=== PATIENT | female | born 1950 | race Caucasian/White ===

== ENCOUNTER 2025-09-27 08:51 | Inpatient (IN) | payer MEDICARE, OTHER, SELFPAY ==
[2025-09-25 14:15] VITALS: BP 130/90
[2025-09-25 14:36] LABS: Hematocrit 46.5 % (37.0-47.0); Hemoglobin 15.8 g/dL (12.0-16.0); Mean Corp Hgb Conc. 34.0 g/dL (33.0-37.0); Mean Corpuscular Volume 83.5 fL (81.0-99.0); Platelet Count 290 10^3/uL (130-400); Red Cell Dist. Width 13.7 % (11.5-14.5)
[2025-09-25 14:45] LABS: ALT (SGPT) 27 U/L (0-35); AST (SGOT) 35 U/L (14-36); Albumin 4.6 g/dl (3.5-5.0); Alkaline Phosphatase 91 U/L (38-126); Blood Urea Nitrogen 15 mg/dl (7-17); Calcium 10.4 mg/dl (8.4-10.2); Carbon Dioxide 25 mmol/L (22-30); Chloride 102 mmol/L (98-107); Glucose 168 mg/dl (70-99); Lipase 23 U/L (23-300); Potassium 4.6 mmol/L (3.5-5.1); Sodium 135 mmol/L (135-145); Total Protein 7.9 g/dl (6.3-8.2); eGFR > 60.00
[2025-09-25 14:49] LABS: INR 1.18; PT 15.1 Sec (11.4-14.6)
[2025-09-25 14:56] LABS: Troponin I 0.020 ng/ml
[2025-09-25 15:16] LABS: Nucleated Red Blood Cells % 0 %
--- NOTE | 2025-09-25 16:55 | ED.GENMED ---
History of Present Illness
<Keith Lion PA-C - Last Filed: 09/25/25 19:13>
General
Chief Complaint: Abdominal Pain
Source: patient and family
Time Seen by Provider: 09/25/25 16:47
History of Present Illness
History of Present Illness:
74-year-old female presenting to the emergency department for evaluation after waking up in the middle the night with right upper abdominal/chest discomfort accompanied with nausea but no vomiting, now pain is exclusively within the right lower
quadrant radiating towards her right back and a sensation of bloating, noting pain with any movements. Has not eaten or drank anything today due to lack of appetite. Denies any fevers, chills or rigors, shortness of breath, palpitations or any
other concerns. Did not take anything for symptoms prior to arrival.
Past History
<Keith Lion PA-C - Last Filed: 09/25/25 19:13>
Past History
ED Past Medical History: None; Negative Arrthythmia
ED Past Surgical History: Other
Social History
Tobacco: Non-smoker
Alcohol: None
Drug: None
Personal:
Living: with family
Employment: Employed
Family History
Family History: Negative Sudden or Adopted
Review of Systems
<Keith Lion PA-C - Last Filed: 09/25/25 19:13>
Review of Systems
All Other Systems: ROS reviewed and negative except as documented in HPI and ROS
Phy Exam
<Keith Lion PA-C - Last Filed: 09/25/25 19:13>
Physical Exam
Physical Exam:
GENERAL: Alert , appears in significant pain
EYE: clear conjunctiva b/l
HEAD: NCAT
ENT: o/p clr, mmm.
CARDIAC: Regular rate and rhythm .
LUNGS: Clear breath sounds bilaterally, no acute respiratory distress, no wheezes/rales/rhonchi
ABDOMEN: Soft, right upper quadrant tenderness, no r/g, no cvat, positive La sign
NEUROLOGICAL: Alert and oriented
SKIN: Warm and dry, skin intact.
MUSCULOSKELETAL: No edema, well perfused.
PSYCH: Normal and appropriate interaction.
Scores
<Keith Lion PA-C - Last Filed: 09/25/25 19:13>
Heart Failure Risk
Heart Failure Risk Score: Not Applicable
Heart Score for Chest Pain Patients
STEMI patient?: Not applicable
Withdrawal Assessment of Alcohol
Withdrawal Assessment Completed?: Not applicable
Course
<Keith Lion PA-C - Last Filed: 09/25/25 19:13>
Orders/Labs/Results
Orders:
Orders
09/25/25 14:15
EKG [Electrocardiogram (*1)] Urgent
Reason for Study: Abdominal Pain
EKG- Treatment ONCE
US Abdomen Complete/Upper Urgent
Comment:
Reason For Exam: RUQ pain
09/25/25 14:21
Complete Blood Count/With Diff Urgent
Comprehensive Metabolic Panel Urgent
Lipase Urgent
Prothrombin Time Urgent
Troponin I Urgent
09/25/25 16:47
Piperacillin/Tazo 3.375 Gram [Zosyn] 3.375 gram in 50 ml IV NOW
09/25/25 16:54
0.9% Sodium Chloride 1000 ml [Nss] 2,000 ml IV BOLUS
HYDROmorphone [Dilaudid] 0.5 mg IV NOW STA
09/25/25 16:57
Lactic Acid Q4H
Comment: CANCEL 2nd LACTIC ACID IF 1st LACTIC ACID IS LESS THAN 2
Blood Culture Q30M
CHAD Source: Blood/Venous
Specimen Description:
Blood Culture Q30M
CHAD Source: Blood/Venous
Specimen Description:
09/25/25 17:19
Ondansetron Injectable [Zofran] 4 mg IV NOW STA
09/25/25 19:15
HYDROmorphone [Dilaudid] 0.5 mg IV NOW STA
09/25/25 21:00
Lactic Acid Q4H
Comment: CANCEL 2nd LACTIC ACID IF 1st LACTIC ACID IS LESS THAN 2
Abnormal Lab Results
09/25/25
14:21
WBC 29.3 H 10^3/uL
(4.8-10.8)
RBC 5.57 H 10^6/uL
(4.20-5.40)
Abs Immat Gran (auto) 0.2 H 10^3/uL
(0-0.05)
Absolute Neuts (auto) 25.8 H 10^3/uL
(1.4-6.5)
Absolute Lymphs (auto) 1.1 L 10^3/uL
(1.2-3.4)
Absolute Monos (auto) 2.1 H 10^3/uL
(0.1-0.6)
Immature Gran % 0.8 H %
(0-0.5)
Neutrophils % 88.1 H %
(42.2-75.2)
Lymphocytes % 3.7 L %
(20.5-51.1)
PT 15.1 H Sec
(11.4-14.6)
Glucose 168 H mg/dl
(70-99)
Calcium 10.4 H mg/dl
(8.4-10.2)
Total Bilirubin 2.5 H mg/dl
(0.2-1.3)
09/25/25 14:21
09/25/25 14:21
Vital Signs
Initial and Last Documented VS:
Initial Vital Signs
Temp Pulse Resp BP Pulse Ox
97.7 F 96 17 130/90 97
12/16/25 14:15 09/25/25 14:15 09/25/25 14:15 09/25/25 14:15 09/25/25 14:15
Last Documented Vital Signs
Temp Pulse Resp BP Pulse Ox
97.7 F 90 18 128/74 98
09/25/25 14:15 09/25/25 17:22 09/25/25 17:22 09/25/25 17:22 09/25/25 17:22
<Ganesh Onofre, DO - Last Filed: 09/25/25 19:52>
Orders/Labs/Results
Orders:
Orders
09/25/25 14:15
EKG [Electrocardiogram (*1)] Urgent
Reason for Study: Abdominal Pain
EKG- Treatment ONCE
US Abdomen Complete/Upper Urgent
Comment:
Reason For Exam: RUQ pain
09/25/25 14:21
Complete Blood Count/With Diff Urgent
Comprehensive Metabolic Panel Urgent
Lipase Urgent
Prothrombin Time Urgent
Troponin I Urgent
09/25/25 16:47
Piperacillin/Tazo 3.375 Gram [Zosyn] 3.375 gram in 50 ml IV NOW
09/25/25 16:54
0.9% Sodium Chloride 1000 ml [Nss] 2,000 ml IV BOLUS
HYDROmorphone [Dilaudid] 0.5 mg IV NOW STA
09/25/25 16:57
Lactic Acid Q4H
Comment: CANCEL 2nd LACTIC ACID IF 1st LACTIC ACID IS LESS THAN 2
Blood Culture Q30M
CHAD Source: Blood/Venous
Specimen Description:
Blood Culture Q30M
CHAD Source: Blood/Venous
Specimen Description:
09/25/25 17:19
Ondansetron Injectable [Zofran] 4 mg IV NOW STA
09/25/25 19:15
HYDROmorphone [Dilaudid] 0.5 mg IV NOW STA
09/25/25 21:00
Lactic Acid Q4H
Comment: CANCEL 2nd LACTIC ACID IF 1st LACTIC ACID IS LESS THAN 2
Abnormal Lab Results
09/25/25
14:21
WBC 29.3 H 10^3/uL
(4.8-10.8)
RBC 5.57 H 10^6/uL
(4.20-5.40)
Abs Immat Gran (auto) 0.2 H 10^3/uL
(0-0.05)
Absolute Neuts (auto) 25.8 H 10^3/uL
(1.4-6.5)
Absolute Lymphs (auto) 1.1 L 10^3/uL
(1.2-3.4)
Absolute Monos (auto) 2.1 H 10^3/uL
(0.1-0.6)
Immature Gran % 0.8 H %
(0-0.5)
Neutrophils % 88.1 H %
(42.2-75.2)
Lymphocytes % 3.7 L %
(20.5-51.1)
PT 15.1 H Sec
(11.4-14.6)
Glucose 168 H mg/dl
(70-99)
Calcium 10.4 H mg/dl
(8.4-10.2)
Total Bilirubin 2.5 H mg/dl
(0.2-1.3)
09/25/25 14:21
09/25/25 14:21
Vital Signs
Initial and Last Documented VS:
Initial Vital Signs
Temp Pulse Resp BP Pulse Ox
97.7 F 96 17 130/90 97
09/25/25 14:15 09/25/25 14:15 09/25/25 14:15 09/25/25 14:15 09/25/25 14:15
Last Documented Vital Signs
Temp Pulse Resp BP Pulse Ox
97.7 F 90 18 128/74 98
09/25/25 14:15 09/25/25 17:22 09/25/25 17:22 09/25/25 17:22 09/25/25 17:22
<Keith Lion PA-C - Last Filed: 09/25/25 19:13>
MDM/Problems Addressed
Differential Diagnosis Includes:
Cholecystitis/Cholelithiasis
Cholangitis
Pancreatitis
Atypical ACS
GERD
Gastritis
PUD
PE
Dissection
MDM/Problems Addressed:
74-year-old female presenting to the ER for evaluation of right upper quadrant abdominal pain, nausea and lack of p.o. intake. Symptoms persistent throughout the day today. Labs have been initiated on arrival which show a leukocytosis of 29,000.
T. bili elevated at 2.5. Given the location of pain and patient's history I do have concern for cholecystitis. Ultrasound results pending.
<Keith Lion PA-C - Last Filed: 09/25/25 19:13>
*Radiology
Radiology exam reviewed: radiology read reviewed
*Pulse Oximetry
SaO2: 97
Oxygen Mode of Delivery: Room air
Patient hypoxic: no
*Critical Care Note
Total Time (30-74mins, 75-104mins- exclusive of procedures): Not Applicable
<Keith Lion PA-C - Last Filed: 09/25/25 19:13>
Patient Management
Discussion with other providers: Dies[employer] and Radiologist
Escalation/DeEscalation of care consider admission/obs:
Noted by radiologist that patient has acute calculous cholecystitis. Will notify general surgery. Zosyn ordered. Due to leukocytosis I did add on a lactic acid, blood cultures. Dilaudid and fluids ordered for symptomatic relief.
Surgical team to admit. House provider to place orders under the surgical service.
ED Attending Note
<Keith Lion PA-C - Last Filed: 09/25/25 19:13>
-
Portions of this chart may have been created with voice recognition software.� Occasional wrong word or��sound alike� substitutions may have occurred due to the inherent limitations of voice recognition software.
<Ganesh Onofre DO - Last Filed: 09/25/25 19:52>
ED Attending Note
Patient seen and examined by attending physician: Yes
ED Attending Note:
I have reviewed and agree with history treatment plan by Aquiles Lion PA-C. My exam revealed 74-year-old female with right upper quadrant tenderness. Leukocytosis, likely secondary to acute cholecystitis seen on ultrasound. IV Zosyn given.
Admit to General surgery.
Discharge Plan
Departure
Patient Disposition: Admit
Date of Disposition: 09/25/25
Time of Disposition: 17:15
Presentation/result/management discussed w/ accepting MD/DO: Dr. Mayen
Discharge Problem:
Acute calculous cholecystitis
Prescriptions:
No Action
oxycodone-acetaminophen 5 MG/325 MG tablet
1 tab PO .Q4-6HPRN PRN (Reason: pain) Qty: 30 0RF
ibuprofen 600 MG tablet
600 mg PO Q6H Qty: 30 0RF
naproxen 500 MG tablet
500 mg PO BID Qty: 60 0RF
cyclobenzaprine [Flexeril] 5 MG tablet
5 mg PO TID PRN (Reason: spasm) Qty: 30 0RF
Interventions
Interventions:
*General Assessment Last Done: 09/25/25 14:17
*Neglect/Abuse Screening Last Done: 09/25/25 14:17
*ED COVID-19 Vaccine History Last Done: 09/25/25 14:17
*ED Influenza Vaccine History Last Done: 09/25/25 14:17
*Risk Screen - Suicide (C-SSRS) Last Done: 09/25/25 14:17
US-Kusjvb-Whbanraqla Assessment Last Done: 09/25/25 16:22
Discharge Date and Time
Print Language: MOSOTHO
[2025-09-25] MEDS: DILAUDID 0.5 MG IV ×3 (17:03→23:25)
[2025-09-25] MEDS: ZOSYN 50 IV ×2 (17:03→23:00)
[2025-09-25] MEDS: NSS 2000 IV (17:03)
[2025-09-25 17:22] VITALS: BP 128/74
--- NOTE | 2025-09-25 20:34 | HPS.HSE ---
Addendum entered and electronically signed by Gurmeet Mayen MD 09/26/25 10:14:
I saw and examined the patient.
The Private Inquiry Agent's note was reviewed and I agree with the note.
Comment: 3 days of abd pain, progressive, severe, epigastric, a/w n/v, no changes to stool/urine, ttp on exam to ruq/epigastrium, AFVSS, leukocytosis noted and bili elevated, US with stones, GBWT, PCF, ducts WNL. OCTOR for rCCY with cholang. IV abx
Original Note:
Family Physician
-
Family Physician: * NONE
Chief Complaint
-
Abdominal pain
History of Present Illness
a 74 years old female with no PMH, present to ER with a complain of abdominal, back, and epigastric area pain, started around 3am Wednesday. Pain associated with chills, nausea and multiple episodes of vomiting almost 15 times can not keep anything
down. Also she complained of constipation since Wed or Wednesday. Patient denies SOB, palpation, fever, urinary symptoms or any other symptoms. Currently pain is localized to RUQ.
Patient is not receiving any prescribed meds at home. Past surgeries (cataract surgeries 12/1989 & Aug 1991)
Medical History
Past Medical History
Past Medical History: Reports None
Past Surgical History: Reports Other (cataract surgeries 12/1989& Aug 1991)
Social History
Tobacco: Non-smoker
Alcohol: Occasional
Drug: None
Personal: Other
Living: With Family (With the daughter )
Employment: Retired
Family History
Family History: Not pertinent
Allergies / Home Medications
Allergies reflects when Allergies were last updated in [employer].
Home Medications with original date entered in [employer]
Allergy/Medication List:
Home Medications Table - record
�Medication �Instructions �Recorded �Confirmed
No Meds [No Current Medications] 09/25/25 09/25/25
Patient Allergies
Allergy/AdvReac Type Severity Reaction Status Date / Time
No Known Allergies Allergy Unverified 09/25/25 14:16
Review of Systems
-
History Source: Patient
Constitutional: Reports Chills
Respiratory: Reports No Symptoms
Abdomen/GI: Reports Abdominal Pain, Nausea, Vomiting and Constipated
: Reports No Symptoms
Musculoskeletal: Reports No Symptoms
Physical Exam
Vital Signs
Vital Signs
Temp Pulse Resp BP Pulse Ox
97.7 F 90 18 128/74 98
09/25/25 14:15 09/25/25 17:22 09/25/25 17:22 09/25/25 17:22 09/25/25 17:22
Physical Exam
General: No Apparent Distress
Respiratory: Clear
Cardiac: Regular Rhythm
GI: Soft, Normal Bowel Sounds and Tender (RUQ)
Musculoskeletal: No Edema
Neuro: Awake and AO x 3
Laboratory Results
-
09/25/25 14:21
09/25/25 14:21
Laboratory Results
PT 15.1 Sec (11.4-14.6) H 09/25/25 14:21
INR 1.18 09/25/25 14:21
Lactic Acid 2.0 mmol/L (0.7-2.0) 09/25/25 16:57
Total Bilirubin 2.5 mg/dl (0.2-1.3) H 09/25/25 14:21
AST 35 U/L (14-36) 09/25/25 14:21
ALT 27 U/L (0-35) 09/25/25 14:21
Alkaline Phosphatase 91 U/L (38-126) 09/25/25 14:21
Troponin I 0.020 ng/ml 09/25/25 14:21
Lipase 23 U/L (23-300) 09/25/25 14:21
Data Reviewed
-
Lab Data: Discussed with Patient
Impression/Plan
-
Abd U/S shows suggestive of acute calculus cholecystitis in the appropriate clinical context.
WBC 29.3
IMPRESSION:
acute calculus cholecystitis
PLAN:
Admit/observation/ med-surg (dr. Mayen/ surgical services)
NPO
IVF
abx Zosyn
analgesics as needed
antiemetics as needed
Laxatives PRN
DVT prophylaxis Lovenox
Code status Full Code
[2025-09-25] MEDS: NSS 1000 IV (22:15)
--- NOTE | 2025-09-25 22:30 | PTCARENOTE ---
74-year-old female arrived from ED on 2S at 22:05. Pt's US Abd - Sonographic findings suggestive of acute calculus cholecystitis
Pt has no significant PMH and does not take any regular medications. Pt AOx3, daughter at bedside, bed in a low position, call light in reach, care ongoing.
[2025-09-25 23:00] VITALS: BP 133/80
[2025-09-25] MEDS: SENOKOT-S 1 TABLET PO (23:03)
[2025-09-25] MEDS: ZOFRAN 4 MG IV (23:33)
[2025-09-26] VITALS (11 sets, daily range): BP systolic 83–124; BP diastolic 51–68
[2025-09-26] MEDS: ZOSYN 50 IV ×4 (06:00→23:16)
--- NOTE | 2025-09-26 08:58 | CM ---
Chart reviewed and patient was admitted for acute cholecystitis, under observation, [facility] letter provided to patient however patient did not sign, patient lives with daughter in a 2 story home, patient is independent with adl's and ambulation, no
dme, patient drives, home with daughter when stable.
PCP: Patient does not have a PCP offered information [facility] however patient declined.
Pharmacy: [facility]
[2025-09-26] MEDS: DILAUDID 0.5 MG IV (09:38)
[2025-09-26] MEDS: NSS 1000 IV ×2 (11:17→23:20)
--- NOTE | 2025-09-26 15:31 | OR.RPT ---
Operative Report
Operative Report
Primary Surgeon: Tiarra
Assisting: Samm MARY, Giovana TELLEZ
Pre-op Diagnosis: Acute calculous cholecystitis
Post-op Diagnosis: Same
Procedure Performed: Robot assisted laparoscopic cholecystectomy with intraoperative near infra-red imaging of major extrahepatic bile ducts and intraoperative cholangiogram
Anesthesia Type: GETA
Specimen / Cultures: Gallbladder
Estimated Blood Loss:15cc
Complications: None immediate
Operative Findings: Severely inflamed distended edematous gallbladder with patchy gangrene; cholangiogram with good flow into duodenum, good opacification of biliary tree without filling defects
DOS: 09/26/25
Indications: This 74F developed right upper quadrant/epigastric pain and on workup was found to have cholelithiasis, with elevated liver enzymes and normal sized ducts. Laparoscopic cholecystectomy with robotic assist and with cholangiogram was
planned.
Description of procedure: The patient was placed on the operating table in the supine position. General anesthesia was induced. A time-out was completed verifying correct patient, procedure, site, positioning, and special equipment prior to
beginning this procedure. An orogastric tube was placed. The abdomen was prepped and draped in the usual sterile fashion. A stab incision was made in left upper quadrant and the Veress needle was inserted. Proper position was confirmed by aspiration
and saline meniscus test. The abdomen was insufflated with carbon dioxide to a pressure of 12 mmHg. The patient tolerated insufflation well.
An 8mm optical trocar was then inserted in the left upper quadrant. The laparoscope was inserted and the abdomen inspected. Additional 8mm trocars were then inserted in the following locations: above the umbilicus, right mid clavicular line at the
level of the umbilicus and 6cm lateral to this on the right. The abdomen was inspected and no abnormalities were found. The table was placed in the reverse Trendelenburg position with the right side up. Dense inflamed omental adhesions to the
gallbladder fundus were taken down carefully. The dome of the gallbladder was grasped with an atraumatic grasper and retracted over the dome of the liver. The infundibulum was grasped with an atraumatic grasper and retracted toward the right lower
quadrant. The infundibulum showed signs of gangrene and early necrosis. This maneuver exposed Calot�s triangle. The cystic duct and cystic artery were dissected out until the only two structures entering the gallbladder were these two structures.
The common duct was protected. ICG was used to visualize the cystic and common ducts. The common duct was protected.
A alyson was made in the cystic duct and a catheter threaded through the veress needle insertion site and into the cystic duct and secured with a 2-0 silk tie. A cholangiogram was obtained showing good flow into duodenum, good opacification of biliary
tree without filling defects. The catheter was removed.
The cystic artery was controlled with bipolar and divided. The cystic duct was doubly clipped and divided. The gallbladder was dissected free from the liver bed. The posterior plane was severely thickened and edematous with patchy areas of gangrene
and early necrosis. Hemostasis was assured and the gallbladder and contained stones were removed using an endoscopic retrieval bag placed through the umbilical port. The gallbladder was passed off the table as a specimen. There was no evidence of
bleeding from the gallbladder fossa or cystic artery or leakage of the bile from the cystic duct stump. The fossa was irrigated with copious sterile saline until effluent ran clear. The umbilical trocar site was closed at the fascial level
laparoscopically with 2-0 PDS. Secondary trocars were removed under direct vision and noted to be hemostatic. The laparoscope was withdrawn and the umbilical trocar removed. The abdomen was allowed to collapse. The skin was closed with subcuticular
sutures of 4-0 monocryl and topical skin adhesive. The orogastric tube was removed.
The patient tolerated the procedure well and was taken to the postanesthesia care unit in stable condition.
The assistance of Samm MARY and Giovana TELLEZ was required due to the complexity of the procedure. During the procedure she assisted with retraction, suction/irrigation, and closure of the wound.
--- NOTE | 2025-09-26 17:14 | PTCARENOTE ---
Pt returned to 2south s/p robotic assisted lap haley under general. Pt returned with 4 lap sites and 1 poke site MEREDITH with glue. Knee high scds on pt. 95% on RA. Care ongoing.
[2025-09-26] MEDS: LOVENOX 40 MG SC (17:20)
[2025-09-27 03:00] VITALS: BP 105/65
[2025-09-27] MEDS: ZOSYN 50 IV ×4 (05:01→23:10)
[2025-09-27] MEDS: DILAUDID 0.5 MG IV (05:34)
[2025-09-27 07:00] VITALS: BP 131/75
--- NOTE | 2025-09-27 08:02 | CM ---
Addendum entered by Adeline Rivas 09/27/25 10:55:
Patient switched to inpatient IMM completed at 10am.
Original Note:
Plan is to home when stable, with spouse no needs.
Plan; Home no needs.
--- NOTE | 2025-09-27 08:49 | W.PN.GS2 ---
Today's Communication / Plan
-
Pain med changes
abx
Assessment / Plan
-
74F POD1 /p rCCY with cholang for gangrenous ACC
AFVSS, requiring IV meds for pain control
Maxine PO
Plan:
ТАТЬЯНА tylenol and tramadol, prn tramadol for breakthrough
Zosyn
DVT ppx
Ambulate
Reg diet
Subjective Data
-
Date of Service: September 27, 2025
AFVSS, pain controlled with dilaudid, ambulating, voiding, c/o diarrhea
Objective Data
-
Intake and Output
09/26/25 09/27/25 09/28/25
06:59 06:59 06:59
Intake Total 2940 / 2940 480 / 480
Balance 2940 / 2940 480 / 480
Intake:
Oral fluids 960 / 960 480 / 480
IV fluids (Total) 1880 / 1880
Normosol 200 / 200
IV piggybacks 100 / 100
Other:
Number of approximated MODERATE 3
amounts of urine
Number of approximated LARGE 1 1
amounts of urine
Vital Signs
Temp Pulse Resp BP Pulse Ox
98.7 F 74 16 131/75 93
09/27/25 07:00 09/27/25 07:00 09/27/25 07:00 09/27/25 07:00 09/27/25 07:00
Lab Results
09/25/25 14:21
09/25/25 14:21
Calcium 10.4 mg/dl (8.4-10.2) H 09/25/25 14:21
Total Bilirubin 2.5 mg/dl (0.2-1.3) H 09/25/25 14:21
AST 35 U/L (14-36) 09/25/25 14:21
ALT 27 U/L (0-35) 09/25/25 14:21
Alkaline Phosphatase 91 U/L (38-126) 09/25/25 14:21
Total Protein 7.9 g/dl (6.3-8.2) 09/25/25 14:21
Albumin 4.6 g/dl (3.5-5.0) 09/25/25 14:21
Physical Exam
-
Gen: NAD
Abd: spprop ttp, incisions cdi with glue
Patient has a corbett catheter: No
Patient has a central line: No
[2025-09-27] MEDS: TYLENOL 1000 MG PO ×4 (09:58→23:10)
[2025-09-27] MEDS: ULTRAM 50 MG PO ×4 (09:58→23:10)
[2025-09-27 11:00] VITALS: BP 123/71
[2025-09-27 15:00] VITALS: BP 110/63
[2025-09-27] MEDS: LOVENOX 40 MG SC (17:17)
[2025-09-27 23:05] VITALS: BP 122/71
[2025-09-28] MEDS: ZOSYN 50 IV (05:18)
[2025-09-28] MEDS: TYLENOL PO ×2 (05:18→12:33)
[2025-09-28] MEDS: ULTRAM 50 MG PO (05:18)
[2025-09-28 07:00] VITALS: BP 122/70
--- NOTE | 2025-09-28 08:34 | CM ---
Chart reviewed and IMM letter given yesterday, plan is to home with daughter when stable.
Plan; Home with daughter.
--- NOTE | 2025-09-28 10:05 | W.PN.GS2 ---
Addendum entered and electronically signed by Gurmeet Mayen MD 09/28/25 10:33:
I saw and examined the patient.
The Belt Measurer's note was reviewed and I agree with the note.
Comment: Pain control improved, O2 weaned off, ambulating, quirino PO. Meets criteria for DC. Plan for DC home with 4 days abx
Original Note:
Today's Communication / Plan
-
dispo planning
Assessment / Plan
-
74F POD2 /p rCCY with cholang for gangrenous ACC
AFVSS
Pain improved
Hypoxia post anesthesia resolved, weaned off O2
Plan:
C/W analgesics as needed upon discharge
Change to PO abx x4 more days upon d/c
DVT ppx
Ambulate
Reg diet
Discharge to home
Subjective Data
-
Date of Service: September 28, 2025
Pt seen and examined at bedside with Dr. Mayen. Denies n/v. Tolerating diet but doesn't care much for the food served here. Feels much better than previous. Pain improved.
Objective Data
-
Intake and Output
09/27/25 09/28/25 09/29/25
06:59 06:59 06:59
Intake Total 2940 / 2940 1540 / 1540 480 / 480
Balance 2940 / 2940 1540 / 1540 480 / 480
Intake:
Oral fluids 960 / 960 1440 / 1440 480 / 480
IV fluids (Total) 1880 / 1880
Normosol 200 / 200
IV piggybacks 100 / 100 100 / 100
Other:
Number of approximated MODERATE 3 1
amounts of urine
Number of approximated LARGE 1 1
amounts of urine
Vital Signs
Temp Pulse Resp BP Pulse Ox
98.2 F 73 16 122/70 96
09/28/25 07:00 09/28/25 07:00 09/28/25 07:00 09/28/25 07:00 09/28/25 07:00
Lab Results
09/25/25 14:21
09/25/25 14:21
Calcium 10.4 mg/dl (8.4-10.2) H 09/25/25 14:21
Total Bilirubin 2.5 mg/dl (0.2-1.3) H 09/25/25 14:21
AST 35 U/L (14-36) 09/25/25 14:21
ALT 27 U/L (0-35) 09/25/25 14:21
Alkaline Phosphatase 91 U/L (38-126) 09/25/25 14:21
Total Protein 7.9 g/dl (6.3-8.2) 09/25/25 14:21
Albumin 4.6 g/dl (3.5-5.0) 09/25/25 14:21
Physical Exam
-
Gen: NAD
Abd: appropriate ttp, incisions cdi with glue and some ecchymosis (no erythema)
Patient has a corbett catheter: No
Patient has a central line: No
--- NOTE | 2025-09-28 10:18 | W.DS.TRANS ---
Addendum entered and electronically signed by GEOFF Alegre 09/28/25 13:09:
dictated #[id number]
Original Note:
DC Summary - Residential Sales Executive
-
Discharge Instructions:
Discharge Diagnosis/Procedures Acute calculous cholecystitis status robotic
assisted laparoscopic cholecystectomy
Diet As tolerated
Additional Diets Eat low fat diet if you notice bloating after
surgery
Activity No strenuous activity
Additional Activity Do not lift over 20lbs for the next 2-3 weeks
Bathing Restrictions OK to Shower
Instructions:
Stand-Alone Forms:
Changes to Home Medications: No
Discharge Medications:
DC Medications w/original date entered in [employer]
acetaminophen 325 mg tablet 650 mg (2 x 325 mg) PO Q4HPRN PRN mild pain #1 tab 09/28/25
amoxicillin 875 mg-potassium clavulanate 125 mg tablet 1 tab PO Q12 antibiotic #8 tabs 09/28/25
ibuprofen 200 mg tablet 400 - 600 mg (2 - 3 x 200 mg) PO Q6HPRN PRN moderate pain #1 tab 09/28/25
tramadol 50 mg tablet 25 - 50 mg (0.5 - 1 x 50 mg) PO Q6HPRN PRN severe pain/breakthrough pain #10 tabs 09/28/25
Home Medication Changes
Pending Results: No
[2025-09-28 11:00] VITALS: BP 114/71
[2025-09-28] MEDS: ULTRAM PO (12:33)
[2025-09-28] MEDS: ZOSYN IV (12:33)
== END 2025-09-28 12:42 | disposition home or self-care (01) | DRG 419 ==
LOC: 2 SOUTH 08:51
PROVIDERS: Physician Assistant Medical; ADMITTING PHYSICIAN Surgery; EMERGENCY PHYSICIAN Emergency Medicine
PROC: BF5C2Z0 Other Imaging of Hepatobiliary System, All using Fluorescing Agent, Intraoperative (ICD-10-PCS; 2025-09-26)
PROC: 0FT44ZZ Resection of Gallbladder, Percutaneous Endoscopic Approach (ICD-10-PCS; 2025-09-26)
DX: K80.00 Calculus of gallbladder with acute cholecystitis without obstruction (principal); K82.A1 Gangrene of gallbladder in cholecystitis
CPT/HCPCS: 74300; 76000; 76700; 80053; 83605; 83690; 84484; 85025; 85610; 87040; 88304; 93005; 96365; 96375; 96376; 99285; A4300